=== PATIENT | female | born 1990 | race American Indian/Alaskan Native ===

== ENCOUNTER 2018-09-02 22:11 | Emergency (ER) | payer OTHER ==
[2018-09-02 22:21] VITALS: O2SAT 100
--- NOTE | 2018-09-02 23:09 | C.PDOC ---
History Of Present Illness 28 year old female presents to the ED for evaluation of severe menstrual cramping which began prior to arrival. Patient reports intermittent cramping that worsened this afternoon. Patient reports severe cramping with menses, that is usually relieved with NSAID but no improvement since last dose this morning. Patient reports nausea. Denies history of fibroid. SEVERE MENSTRUAL CRAMPING [employer]. INTERMIT CRAMPING X SEV DAYS, WORSE THIS AFTERNOON. PS HAS SEVERE CRAMPING W MENSES, USUALLY RELIEVED W NSAID BUT NO IMPROVE LAST DOSE THIS MORNING. +NAUSEA. DENIES HO FIBROID EXAM MILD DIST LUNGS CTA B/L NO W/R/R ABD +SUPRAPUB TEND SOFT NO R/G REMAINDER NEG Time Seen by Provider: 09/02/18 22:24 Chief Complaint (Nursing): Abdominal Pain History Per: Patient History/Exam Limitations: no limitations Onset/Duration Of Symptoms: Hrs Current Symptoms Are (Timing): Still Present Quality Of Discomfort: "Pain" Associated Symptoms: Nausea Additional History Per: Patient Past Medical History Reviewed: Historical Data, Nursing Documentation, Vital Signs Vital Signs: Last Vital Signs Temp 97.4 F L 09/02/18 22:12 Pulse 80 09/02/18 22:12 Resp 20 09/02/18 22:12 BP 95/63 L 09/02/18 22:12 Pulse Ox 100 09/02/18 22:12 - Medical History PMH: Anemia Surgical History: No Surg Hx Family History: States: Unknown Family Hx - Social History Hx Alcohol Use: No Hx Substance Use: No - Immunization History Hx Tetanus Toxoid Vaccination: No Hx Influenza Vaccination: No Hx Pneumococcal Vaccination: No Review Of Systems Gastrointestinal: Positive for: Nausea, Abdominal Pain Physical Exam - Physical Exam Appears: Non-toxic, Other (in mild distress ) Skin: Normal Color, Warm, Dry Head: Atraumatic, Normacephalic Eye(s): bilateral: Normal Inspection Oral Mucosa: Moist Neck: Supple Chest: Symmetrical, No Deformity, No Tenderness Cardiovascular: Rhythm Regular, No Murmur Respiratory: Normal Breath Sounds, No Rales, No Rhonchi, No Wheezing Gastrointestinal/Abdominal: Soft, Tenderness (suprapubic tendernes ), No Guarding, No Rebound Extremity: Normal ROM, Capillary Refill (less than 2 seconds ) Neurological/Psych: Oriented x3, Normal Speech, Normal Cognition ED Course And Treatment O2 Sat by Pulse Oximetry: 100 (on RA) Pulse Ox Interpretation: Normal Progress Note: Urinalysis ordered and reviewed. Toradol IM and Zofran PO given. Reevaluation Time: 00:29 Reassessment Condition: Improved Disposition Counseled Patient/Family Regarding: Studies Performed, Diagnosis, Need For Followup, Rx Given - Disposition Referrals: YOUR,OBGYN [Other] Disposition: HOME/ ROUTINE Disposition Time: 00:29 Condition: IMPROVED Prescriptions: Naproxen 500 mg PO BID #30 tab Ondansetron ODT [Zofran ODT] 4 mg PO TID PRN #12 odt PRN Reason: Nausea/Vomiting Instructions: Menstrual Cramps (DC) Forms: [employer] (Ukrainian), Work Excuse - Clinical Impression Clinical Impression: Pelvic cramping - Scribe Statement The provider has reviewed the documentation as recorded by the Scribe (Ailyn Goode) Provider Attestation: All medical record entries made by the Scribe were at my direction and personally dictated by me. I have reviewed the chart and agree that the record accurately reflects my personal performance of the history, physical exam, medical decision making, and the department course for this patient. I have also personally directed, reviewed, and agree with the discharge instructions and disposition.
[2018-09-02 23:29] LABS: HCG,QUALITATIVE URINE NEGATIVE (NEGATIVE); SQUAMOUS EPITHIAL < 1 /hpf (0-5); URINE BACTERIA RARE (<OCC); URINE BILIRUBIN 1+ (NEGATIVE); URINE BLOOD 3+ (NEGATIVE); URINE CLARITY Clear (Clear); URINE COLOR Yellow (YELLOW); URINE GLUCOSE (UA) NORMAL (Normal); URINE LEUKOCYTE ESTERASE NEG Leu/uL (Negative); URINE PROTEIN 2+ mg/dL (NEGATIVE)
[2018-09-03 00:39] VITALS: BP 101/67; PULSE 91; RESP 16; TEMP 99.1
== END 2018-09-03 00:38 | disposition home or self-care (01) ==
LOC: C.ER 22:11
DX: R10.2 Pelvic and perineal pain (principal)
CPT/HCPCS: 81001; 84703; 96372; 99284; J1885